=== PATIENT | female | born 1985 | race African-American/Black ===

== ENCOUNTER 2020-09-14 12:42 | Emergency (ER) | payer BC ==
[~2020-09-14] VITALS: Ht 170.2 cm; Wt 102.0 kg
[2020-09-14] MEDS ORDERED: IBUP-2029 MT (14:42)
[2020-09-14 14:58] VITALS: BP 140/78
== END 2020-09-14 14:59 | disposition home or self-care (01) ==
LOC: ER 12:42
DX: S39.012A Strain of muscle, fascia and tendon of lower back, initial encounter (principal); S83.8X2A Sprain of other specified parts of left knee, initial encounter; V49.49XA Driver injured in collision with other motor vehicles in traffic accident, initial encounter; Y93.89 Activity, other specified; Y92.89 Other specified places as the place of occurrence of the external cause; Y99.8 Other external cause status
CPT/HCPCS: 72100; 73562; 99284